=== PATIENT | female | born 2000 | race Caucasian/White ===

== ENCOUNTER 2019-04-18 22:19 | Emergency (ER) | payer BC, SELFPAY ==
[2019-04-18 22:19] VITALS: BP 131/76; PULSE 83; RESP 16; TEMP 37; O2SAT 98; BMI 29.0
--- NOTE | 2019-04-18 22:27 | RAD_ITS ---
STUDY: X-RAY - LEFT FOOT CLINICAL: Female, 18 years old. Pain. TECHNIQUE: 3 view(s) of the foot. COMPARISON: None. FINDINGS: Normal talus, calcaneus, and tarsal bones. Normal visualized subtalar, talonavicular, calcaneocuboid, tarsal and tarsometatarsal articulations. There is a fracture within the mid diaphysis of the fifth metatarsal. There is overlying soft tissue swelling. Normal metatarsophalangeal joint of the great toe. Normal tibial and fibular sesamoid bones. Normal interphalangeal joint of the great toe. Normal phalanges of the great toe. Normal second through fifth metatarsophalangeal joints. Normal interphalangeal joints and phalanges of the lesser toes. RAD/Foot min 3 Views IMPRESSION: Fifth metatarsal fracture. Electronically Signed: Alisson Couch MD at 22:38 EDT Tel , Service support ,
--- NOTE | 2019-04-18 22:59 | ED.DCSUM_ITS ---
- ER Visit Summary Date of Service: 04/18/19 Chief Complaint: Foot injury History of Present Illness: The patient is a 18 F who is doing a ballet dance when her feet got tangled in her outfit she came down awkwardly on the lateral aspect of the left foot. She notes pain and swelling. Difficulty trying to bear any weight. She is from the [facility] and is currently in town for the next 3 weeks. Physical Examination: Afebrile vital signs stable Gen: Well-nourished well-developed Head: Normocephalic atraumatic Eyes: Perrl EOMI ENT: TMs clear no rhinorrhea moist mucous membranes Neck: Supple no lymphadenopathy no JVD nontender CVS: Regular rate rhythm no murmurs normal S1-S2 Respiratory: No distress clear to auscultation bilaterally chest nontender Abdomen: Soft nontender nondistended normal bowel sounds no masses Back: Nontender Extremity: Left foot demonstrates swelling and tenderness over the fifth metatarsal. Skin: Normal color no rash Neuro: alert orientated ?3 CN II-XII intact normal strength sensation reflexes gait cerebellar Psych: Normal affect normal mood Test Results: There is a midshaft fifth metatarsal fracture no displacement. Emergency Department Course and Treatment: Patient will be nonweightbearing. She will be placed in a posterior Ortho-Glass splint. Neurovascular intact pre- and post application. Follow-up is with podiatry Dr. Connolly's group. Impression: 1. Left fifth metatarsal fracture 2. Splint by physician This note was generated with [employer] dictation software. It may contain incorrect words, spelling, and punctuation that were not noted in review of the chart prior to signing ED Disposition - Plan for ED Patient: Disposition: Home or Assisted Living Instructions: FRACTURE, Foot Referrals: Dylan Connolly DPM [STAFF PHYSICIAN] - As soon as possible
[2019-04-18 23:52] VITALS: RESP 15
== END 2019-04-18 23:53 | disposition home or self-care (01) ==
LOC: ED 23:25
PROVIDERS: Emergency Provider Emergency Medicine
DX: S92.352A Displaced fracture of fifth metatarsal bone, left foot, initial encounter for closed fracture (principal); W01.0XXA Fall on same level from slipping, tripping and stumbling without subsequent striking against object, initial encounter; Y93.41 Activity, dancing; Y92.89 Other specified places as the place of occurrence of the external cause; Y99.8 Other external cause status
CPT/HCPCS: 29505; 73630; 99283